=== PATIENT | male | born 1985 | race Asian ===

== ENCOUNTER 2021-09-15 09:43 | Emergency (ER) | payer BC ==
[~2021-09-15] VITALS: Ht 172.7 cm; Wt 91.4 kg
[2021-09-15 09:51] VITALS: BP 136/95
[2021-09-15] MEDS ORDERED: SYNTHROID0.2 MG/TAB PO (10:09)
[2021-09-15] MEDS ORDERED: PRINIVIL20 MG PO (10:09)
[2021-09-15 11:46] VITALS: PULSE 62; TEMP 97.2
== END 2021-09-15 11:46 | disposition home or self-care (01) ==
LOC: COL.ER 09:43
DX: S60.111A Contusion of right thumb with damage to nail, initial encounter (principal); W23.1XXA Caught, crushed, jammed, or pinched between stationary objects, initial encounter